=== PATIENT | female | born 1960 | race Caucasian/White ===

== ENCOUNTER 2021-09-20 16:21 | Emergency (ER) | payer OTHER ==
[~2021-09-20] VITALS: Ht 157.5 cm; Wt 46.2 kg
[2021-09-20] MEDS ORDERED: IPRATRPIUM/ALBUTEROL 0.5/2.5MG 3 ML NEBU. NEB ONE (16:45)
[2021-09-20] MEDS ORDERED: methylPREDNISolone SOD SUCC PF 125 MG/2 ML VIAL. IV ONE (16:45)
--- NOTE | 2021-09-20 16:50 | PHYS DOC ---
General Adult HPI: HPI: Patient is a 61-year-old female who presents to the emergency department sent in by her PCP for shortness of breath. Patient reports last Saturday she started having nasal congestion and drainage and on Saturday she became short of breath. She is reporting yellow nasal drainage and a yellow/clear productive cough. Patient had a CTA performed outpatient today and she was sent in by her PCP for the finding of a mucous plug. Patient has a history of hypothyroidism and hypertension. She is a current smoker. Patient denies any fevers, chest pain, nausea, vomiting. (DOMINIQUE RAGLAND APRN) Review of Systems: Review of Systems: Constitutional: See HPI HENT: See HPI Respiratory: See HPI Cardiovascular: See HPI GI: See HPI (DOMINIQUE RAGLAND APRN) Allergies: Allergies: Allergies Coded Allergies Type Severity Reaction Last Updated Verified No Known Drug Allergies 09/20/21 No (DOMINIQUE RAGLAND APRN) Physical Exam: PE: Constitutional: Well developed, well nourished, no acute distress, non-toxic appearance. [] HENT: Normocephalic, atraumatic, bilateral external ears normal, oropharynx moist, no oral exudates, nose normal. [] Eyes: PERRL, EOMI, conjunctiva normal, no discharge. [] Neck: Normal range of motion, no tenderness, supple, no stridor. [] Cardiovascular:Heart rate regular rhythm, no murmur [] Lungs & Thorax: Wheezing noted in right upper and lower lobes Abdomen: Bowel sounds normal, soft, no tenderness, no masses, no pulsatile masses. [] Skin: Warm, dry, no erythema, no rash. [] Back: Full range of motion Extremities: No tenderness, no cyanosis, no clubbing, ROM intact, no edema. [] Neurologic: Alert and oriented X 3, normal motor function, normal sensory function, no focal deficits noted. [] Psychologic: Affect normal, judgement normal, mood normal. [] (DOMINIQUE RAGLAND APRN) Current Patient Data: Labs: Laboratory Tests Test 09/20/21 17:35 White Blood Count 7.1 x10^3/uL Red Blood Count 5.06 x10^6/uL Hemoglobin 16.5 g/dL Hematocrit 48.7 % Mean Corpuscular Volume 96 fL Mean Corpuscular Hemoglobin 33 pg Mean Corpuscular Hemoglobin Concent 34 g/dL Red Cell Distribution Width 14.4 % Platelet Count 393 x10^3/uL Neutrophils (%) (Auto) 65 % Lymphocytes (%) (Auto) 19 % Monocytes (%) (Auto) 12 % Eosinophils (%) (Auto) 2 % Basophils (%) (Auto) 3 % Neutrophils # (Auto) 4.6 x10^3uL Lymphocytes # (Auto) 1.3 x10^3/uL Monocytes # (Auto) 0.8 x10^3/uL Eosinophils # (Auto) 0.1 x10^3/uL Basophils # (Auto) 0.2 x10^3/uL Sodium Level 128 mmol/L Potassium Level 3.9 mmol/L Chloride Level 93 mmol/L Carbon Dioxide Level 24 mmol/L Anion Gap 11 Blood Urea Nitrogen 6 mg/dL Creatinine 0.5 mg/dL Estimated GFR (Cockcroft-Gault) 126.3 Glucose Level 113 mg/dL Calcium Level 8.9 mg/dL Troponin I High Sensitivity 10 ng/L Current Medications Medications (Trade) Dose Ordered Sig/Severiano Route PRN Reason Start Time Stop Time Status Last Admin Dose Admin Albuterol/ Ipratropium (Duoneb) 3 ml 1X ONCE NEB 09/20/21 16:45 09/20/21 16:46 DC 09/20/21 16:49 Methylprednisolone Sodium Succinate (SOLU-Medrol 125MG VIAL) 125 mg 1X ONCE IV 09/20/21 16:45 09/20/21 16:46 DC 09/20/21 16:49 Sodium Bicarbonate (Sodium Bicarb Adult 8.4% Syr) 50 meq 1X ONCE IV 09/20/21 18:15 09/20/21 18:16 UNV (DOMINIQUE RAGLAND APRN) EKG: EKG: EKG performed by ER staff at 1806 shows sinus rhythm with a rate of 77, QTc of 441, no STEMI read by Dr. Hicks [] (DOMINIQUE RAGLAND APRN) Radiology/Procedures: Radiology/Procedures: [] (DOMINIQUE RAGLAND APRN) Heart Score: C/O Chest Pain: No Risk Factors: Risk Factors: DM, Current or recent (<one month) smoker, HTN, HLP, family history of CAD, obesity. Risk Scores: Score 0 - 3: 2.5% MACE over next 6 weeks - Discharge Home Score 4 - 6: 20.3% MACE over next 6 weeks - Admit for Clinical Observation Score 7 - 10: 72.7% MACE over next 6 weeks - Early Invasive Strategies (DOMINIQUE RAGLAND APRN) Course & Med Decision Making: Course & Med Decision Making Pertinent Labs and Imaging studies reviewed. (See chart for details) [] Patient presents to the emergency department for shortness of breath since Saturday. Patient is a current smoker and has a history of hypertension and hypothyroidism. Patient had an outpatient CTA performed which showed a mucous plug and her primary care provider sent her into the ER. Reviewed patient's CTA did not show any pulmonary embolism but did show emphysema changes and a mucous plug. Patient's vital signs are stable, she is not hypoxic or tachypneic. Work-up in the ER consisted of CBC, BMP, troponin, EKG. Patient treated with IV steroids and a breathing treatment as she is wheezing. Patient is requesting to be discharged home. Patient CBC was unremarkable. Patient is noted to have a sodium of 128,I discussed this with supervising physician, she does not have any altered mental status, headache, nausea, vomiting or muscle weakness, chloride was 93. Patient treated with an aunt amp of bicarb. Negative troponin. Patient's vital signs are stable. She is not requiring oxygen. Patient will be discharged home with a Z-Farhat as she does have COPD and purulent sputum, steroid for COPD exacerbation and albuterol inhaler. She is advised to follow-up with her primary care provider to get her sodium rechecked as well as management of her COPD. I discussed with patient all findings and diagnostic testing as well as the need to follow-up with PCP for further evaluation and treatment or return to the ER if any new or worsening symptoms. Strict return precautions were also discussed at length. Patient voiced understanding and agreement with the plan. Patient is hemodynamically stable at the time of disposition. (DOMINIQUE RAGLAND APRN) Dragon Disclaimer: Dragon Disclaimer: This electronic medical record was generated, in whole or in part, using a voice recognition dictation system. (DOMINIQUE RAGLAND APRN) Departure Departure: Impression: Primary Impression: COPD exacerbation Disposition: HOME / SELF CARE / HOMELESS Condition: GOOD Referrals: OLENA BRIDGES MD (PCP) Patient Instructions: Chronic Obstructive Pulmonary Disease, Hyponatremia, [id number] Additional Instructions: You are seen in the emergency department today for shortness of breath. Your CT scan that I reviewed from your primary care provider shows COPD/emphysema changes. You likely do have emphysema due to your cigarette smoking. Your sodium was noted to be low in the emergency department and it was replaced. These follow-up with your primary care provider within a week to have this level rechecked. You are being discharged home with a steroid, Z-Farhat and albuterol inhaler. You can use the albuterol inhaler as needed for shortness of breath. Please make sure that you start and finish the steroid and the antibiotic. Return to the emergency department if you develop worsening of your shortness of breath, chest pain, high fevers refractory to treatment, weakness, confusion, intractable nausea or vomiting or any new or worsening concerns. EMERGENCY DEPARTMENT GENERAL DISCHARGE INSTRUCTIONS Thank you for coming to [facility] ([facility]) today and trusting us with you care. We trust that you had a positivie experience in our Emergency Department. If you wish to speak to the department management, you may call the director at [phone]. YOUR FOLLOW UP INSTRUCTIONS ARE FOLLOWS: 1. Do you have a private Doctor? If you do not have a private doctor, please ask for a resource list of physicians or clinics that may be able to assist you with follow up care. 2. The Emergency Physician has interpreted your x-rays. The X-Ray specialist will also review them. If there is a change in the findings, you will be notified in 48 hours when at all possible. 3. A lab test or culture has been done, your results will be reviewed and you will be notified if you need a change in treatment. ADDITIONAL INSTRUCTIONS AND INFORMATION: 1. Your care today has been supervised by a physician who is specially trained in emergency care. Many problems require more than one evaluation for a complete diagnosis and treatment. We recommend that you schedule your follow up appointment as recommended to ensure complete treatment of you illness or injury. If you are unable to obtain follow up care and continue to have a problem, or if your condition worsens, we recommend that you return to the ED. 2. We are not able to safely determine your condition over the phone nor are we able to give sound medical advice over the phone. For these safety reasons, if you call for medical advice we will ask you to come to the ED for further evaluation. 3. If you have any questions regarding these discharge instructions please call the ED at [phone]. SAFETY INFORMATION: In the interest of safety, wellness, and injury prevention; we encourage you to wear your sealbelt, if you smoke; quite smoking, and we encourage family to use a protective helmet for bicycling and other sporting events that present an increased risk for head injury. IF YOUR SYMPTOMS WORSEN OR NEW SYMPTOMS DEVELOP, OR YOU HAVE CONCERNS ABOUT YOUR CONDITION; OR IF YOUR CONDITION WORSENS WHILE YOU ARE WAITING FOR YOUR FOLLOW UP APPOINTMENT; EITHER CONTACT YOUR PRIMARY CARE DOCTOR, THE PHYSICIAN WHOSE NAME AND NUMBER YOU WERE GIVEN, OR RETURN TO THE ED IMMEDIATELY. Scripts Prednisone (PREDNISONE) 20 Mg Tablet 2 TAB PO DAILY for copd exacerbation for 5 Days, #10 TAB Prov: DOMINIQUE RAGLAND APRN 09/20/21 Albuterol Sulfate (PROAIR HFA INHALER) 8.5 Gm Hfa.aer.ad 2 PUFF IH PRN Q4-6HRS PRN for wheezing for 21 Days, #1 INHALER 0 Refills as needed for wheezing Prov: DOMINIQUE RAGLAND APRN 09/20/21 Azithromycin (AZITHROMYCIN TABLET) 250 Mg Tablet 1 PKG PO UD for infection for 5 Days, #6 TAB 0 Refills 2 the first day followed by 1 for days 2-5 Prov: DOMINIQUE RAGLAND APRN 09/20/21 Dragon Disclaimer This chart was dictated in whole or in part using Voice Recognition software in a busy, high-work load, and often noisy Emergency Department environment. It may contain unintended and wholly unrecognized errors or omissions. (BLANKA HICKS MD) Attending Signature Attending Signature I have participated in the care of this patient and I have reviewed and agree with all pertinent clinical information above including history, exam, and recommendations. (BLANKA HICKS MD) DOMINIQUE RAGLAND APRN Sep 20, 2021 16:50 BLANKA HICKS MD Sep 22, 2021 04:09
[2021-09-20 18:03] LABS: BASO # 0.2 x10^3/uL (0.0-0.2); BASO % 3 % (0-3); EOS # 0.1 x10^3/uL (0.0-0.7); EOS % 2 % (0-3); HEMATOCRIT 48.7 % (36.0-47.0); HEMOGLOBIN 16.5 g/dL (12.0-15.5); LYMPH # 1.3 x10^3/uL (1.0-4.8); LYMPH % 19 % (24-48); MEAN CORPUSCULAR HEMOGLOBIN 33 pg (25-35); MEAN CORPUSCULAR HGB CONC 34 g/dL (31-37); MEAN CORPUSCULAR VOLUME 96 fL (79-100); MONO # 0.8 x10^3/uL (0.0-1.1); MONO % 12 % (0-9); NEUT # 4.6 x10^3uL (1.8-7.7); NEUT % 65 % (31-73); PLATELET COUNT 393 x10^3/uL (140-400); RED BLOOD COUNT 5.06 x10^6/uL (3.50-5.40); RED CELL DISTRIBUTION WIDTH 14.4 % (11.5-14.5); WHITE BLOOD COUNT 7.1 x10^3/uL (4.0-11.0)
[2021-09-20 18:06] LABS: CALCIUM 8.9 mg/dL (8.5-10.1); CREATININE 0.5 mg/dL (0.6-1.0); GFR 126.3; POTASSIUM 3.9 mmol/L (3.5-5.1)
[2021-09-20] MEDS ORDERED: SODIUM BICARB ADULT 8.4% 50 MEQ/50 ML DISP.SYRIN. IV ONE (18:15)
[2021-09-20] MEDS ORDERED: ALBU2.5V8 IH (18:28)
[2021-09-20] MEDS ORDERED: PRED20TA PO (18:28)
[2021-09-20] MEDS ORDERED: AZIT250T6 PO (18:28)
--- NOTE | 2021-09-20 21:16 | EKG ---
[address] [address] Test Date: 2021-09-20 Test Time: 18:06:26 Pat Name: LUIS ARMANDO LANDIN Department: Room: Gender: F [employer] Consultant: DOMI : [id number] Requested By: DOMINIQUE RAGLAND Order Number: [id number] Reading MD: Measurements Intervals [place] Rate: 77 P: [place]: QRS: 55 QRSD: 112 T: 93 QT: 388 QTc: 441 Interpretive Statements ATRIAL FLUTTER ST ABNORMALITY, POSSIBLE HIGH LATERAL SUBENDOCARDIAL INJURY ABNORMAL ECG RI6.01 No previous ECG available for comparison
== END 2021-09-20 19:00 | disposition home or self-care (01) ==
LOC: ER 16:21
DX: J44.1 Chronic obstructive pulmonary disease with (acute) exacerbation (principal); E03.9 Hypothyroidism, unspecified; I10 Essential (primary) hypertension; F17.200 Nicotine dependence, unspecified, uncomplicated
CPT/HCPCS: 36415; 80048; 84484; 85025; 93005; 94640; 96374; 99284; J2930

== ENCOUNTER → 2021-09-20 | Outpatient (CLI) | payer OTHER ==
[~2021-09-20] MED LIST: ALBU2.5V8 IH; AZIT250T6 PO; IOHEXOL 350 MG/ML 100 ML VIAL. IV ONE; PRED20TA PO
--- NOTE | 2021-09-20 16:11 | RAD ---
Exam: CT of chest with contrast INDICATION: Shortness of breath, history of Covid TECHNIQUE: Sequential axial images through the chest obtained following the administration of 100 mL of Isovue-370 IV contrast. Sagittal and coronal reformatted images were reconstructed from the axial data and reviewed. 3-D reformatted images were reconstructed from the axial data and reviewed. Exposure: One or more of the following in the visualized dose reduction techniques were utilized for this examination: 1. Automated exposure control 2. Adjustment of the MA and/or KV according to patient size 3. Use of iterative of reconstructive technique Comparisons: None FINDINGS: Visual is portions of the thyroid are unremarkable. No enlarged mediastinal lymph nodes are identifie d. Heart size is normal. No pericardial effusion. Thoracic aorta has a normal course and caliber. Pulmon neelam artery is not enlarged. No pulmonary embolus identified within the main, lobar or segmental pulmo nary arteries. Mucous plugging noted in the right lower lobe. No consolidation or pneumothorax. Tree-in-bud nodulari ty noted in the right middle lobe. Mild centrilobular emphysematous change at the upper lungs. No pleural effusion or thickening. Visualized upper abdomen is unremarkable. No suspicious osseous lesions or acute fractures. IMPRESSION: 1. No pulmonary embolus identified within the main, lobar or segmental pulmonary arteries. 2. Small mucous plugging noted in the right lower lobe. Electronically signed by: Elpidio Elizondo MD (09/20/2021 4:08 PM) [facility]
== END ==
LOC: RAD 15:10
PROVIDERS: ATTEND Specialist
DX: J43.2 Centrilobular emphysema (principal); T17.990A Other foreign object in respiratory tract, part unspecified in causing asphyxiation, initial encounter; X58.XXXA Exposure to other specified factors, initial encounter; Y93.89 Activity, other specified; Y92.89 Other specified places as the place of occurrence of the external cause; Y99.8 Other external cause status
CPT/HCPCS: 71275; Q9967